=== PATIENT | male | born 1940 | race Caucasian/White ===

== ENCOUNTER 2019-04-03 20:38 | Emergency (ER) | payer OTHER ==
[~2019-04-03] VITALS: Ht 172.7 cm; Wt 99.8 kg
[2019-04-03] MEDS ORDERED: XANAX 0.25 MG0.25 MG PO (21:40)
[2019-04-03] MEDS ORDERED: TYLENOL325 MG PO (21:40)
[2019-04-03] MEDS ORDERED: NORVASC5 MG PO (21:41)
[2019-04-03] MEDS ORDERED: AMITIZA 24 MCG24 MC1 PO (21:41)
[2019-04-03] MEDS ORDERED: BALANCE B-501 EACH PO (21:42)
[2019-04-03] MEDS ORDERED: ASPIRIN81 M2 PO (21:42)
[2019-04-03] MEDS ORDERED: LIPITOR80 MG PO (21:42)
[2019-04-03] MEDS ORDERED: BASAGLAR K100 UNIT/1 INJECTION (21:43)
[2019-04-03] MEDS ORDERED: BIOFREEZE118 ML TOP (21:44)
[2019-04-03] MEDS ORDERED: GENTLE LAXATIVE10 MG RECTAL (21:45)
[2019-04-03] MEDS ORDERED: BUMETANIDE0.25 MG/1 IV PUSH (21:46)
[2019-04-03] MEDS ORDERED: BUPROPION HCL150 M1 PO (21:47)
[2019-04-03] MEDS ORDERED: CARVEDILOL12.5 MG PO (21:47)
[2019-04-03] MEDS ORDERED: VITAMIN D1000 UNI1 PO (21:48)
[2019-04-03] MEDS ORDERED: DEPAKOTE500 MG PO (21:48)
[2019-04-03] MEDS ORDERED: AVODART0.5 MG PO (21:49)
[2019-04-03] MEDS ORDERED: COLACE100 MG PO (21:49)
[2019-04-03] MEDS ORDERED: FLONASE 0.05%50 MCG NASAL (21:49)
[2019-04-03] MEDS ORDERED: NEURONTIN 300300 M1 PO ×2 (21:50→22:29)
[2019-04-03] MEDS ORDERED: HYDROCORTISONE30 G9 RECTAL (21:51)
[2019-04-03] MEDS ORDERED: IMDUR 30 MG TAB30 M1 PO (21:51)
[2019-04-03] MEDS ORDERED: SYNTHROID100 MC1 PO (21:52)
[2019-04-03] MEDS ORDERED: LACTULOSE10 GM/15 M PO (21:52)
[2019-04-03] MEDS ORDERED: LIDOCAINE PAIN1 EACH TRANSDERM (21:53)
[2019-04-03] MEDS ORDERED: LISINOPRIL20 MG PO (21:54)
[2019-04-03] MEDS ORDERED: LINZESS290 MCG PO (21:54)
[2019-04-03] MEDS ORDERED: NOVOLOG FL100 UNIT/M INJECTION (21:55)
[2019-04-03] MEDS ORDERED: METRONIDAZOLE500 M4 PO (21:55)
[2019-04-03] MEDS ORDERED: OLANZAPINE ODT5 MG PO (21:56)
[2019-04-03] MEDS ORDERED: PROTONIX40 M1 PO (21:56)
[2019-04-03] MEDS ORDERED: SENNA8.6 MG PO (21:57)
[2019-04-03] MEDS ORDERED: SPIRONOLACTONE25 M1 PO (21:57)
[2019-04-03] MEDS ORDERED: MIRALAX17 GM PO (21:57)
[2019-04-03] MEDS ORDERED: TOPAMAX 25 MG T25 M1 PO (21:58)
[2019-04-03] MEDS ORDERED: VENTOLIN HFA 1818 GM INH (21:58)
[2019-04-03] MEDS ORDERED: VOLTAREN GEL 1100 G2 TOP (21:58)
[2019-04-03] MEDS ORDERED: BRILINTA90 MG PO (21:59)
[2019-04-03 22:08] VITALS: BP 146/64
== END 2019-04-03 22:36 | disposition home or self-care (01) ==
LOC: ER 20:38
DX: E11.40 Type 2 diabetes mellitus with diabetic neuropathy, unspecified (principal)